=== PATIENT | male | born 1980 | race Caucasian/White ===

== ENCOUNTER 2017-01-24 15:00 | Inpatient (IN) | payer MEDICARE ==
[~2017-01-24] VITALS: Ht 172.7 cm; Wt 72.6 kg
--- NOTE | ~2017-01-24 | PN ---
Unit #: [id number] #: [id number] Patient: KODAK RAMIREZ [id number] [facility] [address] [place] [address] [id number] I MR#: [id number] NAME: KODAK RAMIREZ ROOM: 86 Age: 36 Sex: M Admission Date: 01/24/2017 : 1980 Attending Physician: Nic Carnes M.D. Admitting Physician: Nic Carnes M.D. Primary Care Physician: Primary Care Physician Johanny BOYKIN PROGRESS NOTES DATE January 27, 2017 DISCUSSION Mr. Ramirez is a 36-year-old white male, who was seen today and chart was reviewed and the case was discussed with the staff. He has been anxious, withdrawn, and rather seclusive to himself. Meanwhile, he has been cooperative with the treatment recommendations and he has been taking the medications and tolerating them fairly well with no reported side effects. MENTAL STATUS EXAMINATION Young white male, who was casually dressed with fair personal hygiene and appears to be in no acute distress or discomfort. He was awake and alert with intact orientation. His mood is anxious with a congruent affect. He denies any suicidal or homicidal ideations. His insight and judgment remain slightly impaired. TREATMENT PLAN 1. We will continue him on his current medications and treatment protocol, and will monitor his response to the medications, and make further adjustments as needed. 2. We will continue to followup. Dictated by... Elle Engle/sumit TD: 01/28/2017 09:17 JOB #: [id number] [facility] PROGRESS NOTES Page 1 of 1 X Nic Carnes MD PROGRESS NOTE
--- NOTE | ~2017-01-24 | PA ---
Unit #: [id number] #: [id number] Patient: KODAK RAMIREZ [id number] [facility] [address] [place] [address] [id number] MR#: [id number] NAME: KODAK RAMIREZ ROOM: P186 Age: 36 Sex: M Admission Date: 01/24/2017 : 1980 Date of Assessment: Attending Physician: Nic Carnes M.D. Admitting Physician: Nic Carnes M.D. Primary Care Physician: Primary Care Physician No PSYCHIATRIC ASSESSMENT DATE OF SERVICE 01/24/2017 IDENTIFYING DATA Mr. Ramirez is a 36-year-old, , white male, who is a resident of [place], [place] and is very well known to us from previous multiple encounters and usually comes to [facility] in [facility] and has had repeat hospitalizations particularly of late with poor outcomes and refusing to follow up on any treatment recommendation, and now decided to bring himself onto the [facility] with a blood alcohol level of 0.035. CHIEF COMPLAINT "I'm feeling suicidal." HISTORY OF PRESENT ILLNESS A 36-year-old white male with a history of mood disorder and substance abuse who called the police stating that he was feeling suicidal and suffers from depression and was taken to the hospital where his drug screen was seen to be positive for opioids, methamphetamine and benzodiazepines, and had a blood alcohol level of 0.035 and was seen to be flat and depressed and seclusive to himself and describes feelings of hopelessness and helplessness, and stated that he is tired of his 16-year-old daughter seeing him that way and that he has been drinking a liter of alcohol daily with history of withdrawal seizures and endorses recent use of methamphetamine, benzodiazepines, opioids, and alcohol and that he has had increasing depression, feelings of hopelessness and helplessness, and suicidal ideations. He also reports previous suicide attempts resulting in medical interventions in the intensive care unit with multiple inpatient hospitalizations, but has not been able to follow up with outpatient treatment and as such, has been seen to have poor prognosis; however, he was seen to be a significant danger to self and therefore recommendation for inpatient level of care for safety and stabilization was made. The patient was transferred to us. SUBSTANCE ABUSE HISTORY The patient reports history of alcohol, opioids, and methamphetamine abuse and dependence. PAST PSYCHIATRIC HISTORY The patient has had a history of multiple inpatient psychiatric hospitalizations mostly at [facility] in addition to being at [facility] and at the [facility], and has been diagnosed and Unit #: [id number] #: [id number] Patient: KODAK RAMIREZ treated for mood disorder. He was supposed to be on psychotropic medications, but has been noncompliant with medication as such, has been decompensating. PAST MEDICAL HISTORY Hepatitis C, Crohn disease, hypothyroidism. ALLERGIES Penicillin. PERSONAL AND SOCIAL HISTORY A 36-year-old white male, who reports that he is single, unemployed, and lives with a cousin and has poor social support system. MENTAL STATUS EXAMINATION Young white male, who was casually dressed with fair personal hygiene, appears to be in no acute distress or discomfort. He was awake and alert on interaction with intact orientation to time, place, and person. His mood was anxious and depressed with a congruent affect. His speech was slow and restricted in content. His thought processes were disorganized with some looseness of associations and flight of ideas. His insight and judgment remain significantly impaired. DIAGNOSTIC IMPRESSION Psychiatric: Alcohol dependence, moderate and acute withdrawals; benzodiazepine dependence, moderate and acute withdrawals; opioid dependence, moderate and acute withdrawals; methamphetamine dependence, moderate; alcohol-induced mood disorder. Medical: None. Stressors: Moderate psychosocial stressors. TREATMENT PLAN 1. The patient has presented with a history of substance abuse and mood disorder, and has been decompensating and will need inpatient hospitalization for safety and stabilization. We will start him back on his home medications. We will adjust the medications and monitor response. 2. Supportive therapy was provided to the patient. 3. Safe, structured, and nourishing environment will be provided. ESTIMATED LENGTH OF STAY 5 to 7 days. ABILITY TO HELP SELF Limited. WILLINGNESS TO HELP SELF The patient appears to be willing to help self. STRENGTHS 1. Communicative. 2. Cooperative. PROBLEMS 1. Chronic dysphoric symptoms. 2. Chronic chemical dependency. 3. Poor social support system. Unit #: [id number] #: [id number] Patient: KODAK RAMIREZ DISCHARGE CRITERIA This will be contingent upon the patient's ability to show resolution of his depression and anxiety and ability to go through detox without having any significant withdrawal symptoms as well as ability to stay safe to himself, particularly after discharge from the hospital. Dictated by... Elle Engle/contreras TD: 01/25/2017 06:57 JOB #: [id number] PSYCHIATRIC ASSESSMENT Page 1 of 1 X Nic Carnes MD PSYCHIATRIC ASSESSMENT
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
--- NOTE | ~2017-01-24 | PN ---
Unit #: [id number] #: [id number] Patient: KODAK RAMIREZ [id number] [facility] [address] [place] [address] [id number] MR#: [id number] NAME: KODAK RAMIREZ ROOM: 86 Age: 36 Sex: M Admission Date: 01/24/2017 : 1980 Attending Physician: Nic Carnes M.D. Admitting Physician: Nic Carnes M.D. Primary Care Physician: Primary Care Physician Johanny BOYKIN PROGRESS NOTES DATE 01/26/2017 DISCUSSION Mr. Ramirez is a 36-year-old white male with mood disorder and substance abuse who was seen today and chart was reviewed and case was discussed with the staff. He remains anxious, withdrawn, depressed and rather seclusive to himself. Meanwhile, he has been taking medications and tolerating them fairly well with no reported side effects. MENTAL STATUS EXAMINATION Young white male who was casually dressed with fair personal hygiene and appears to be in no acute distress or discomfort. He was awake and alert with intact orientation. His mood was anxious with congruent affect. He denies any suicidal or homicidal ideation. His insight and judgement remains slightly impaired. TREATMENT PLAN 1. Will continue his current treatment protocol. Will monitor his response to the medications and make further adjustments as needed. 2. Will continue to follow up. Dictated by... Elle Engle/alyssa TD: 01/26/2017 21:20 JOB #: [id number] Unit #: [id number] #: [id number] Patient: KODAK RAMIREZ PROGRESS NOTES Page 1 of 1 X Nic Carnes MD PROGRESS NOTE
--- NOTE | ~2017-01-24 | PN ---
Unit #: [id number] #: [id number] Patient: KODAK RAMIREZ [id number] [facility] [address] [place] [address] [id number] MR#: [id number] NAME: KODAK RAMIREZ ROOM: [facility] Age: 36 Sex: M Admission Date: 01/24/2017 : 1980 Attending Physician: Nic Carnes M.D. Admitting Physician: Nic Carnes M.D. Primary Care Physician: Primary Care Physician Johanny CINTRON NOTES DATE OF SERVICE 01/25/2017 DISCUSSION Mr. Ramirez is a 36-year-old white male who was seen today. Chart was reviewed and case was discussed with the staff. He has been anxious, withdrawn, and rather seclusive to himself. Meanwhile, he has been cooperative with the treatment recommendations and has been taking the medications and tolerating them fairly well with no reported side effects. MENTAL STATUS EXAMINATION Young white male who is casually dressed with fair personal hygiene, appears to be in no acute distress or discomfort. He was awake and alert on interaction with intact orientation. His mood is anxious with congruent affect. Speech is slow and goal-directed. He denies any suicidal or homicidal ideations and also denies any auditory or visual hallucinations. His insight and judgment remain slightly impaired. TREATMENT PLAN 1. We will continue him on his current medications and treatment protocol. We will monitor his response to the medications and make further adjustments as needed. 2. We will continue to follow up. Dictated by... Nic Carnes M.D. IAA/bzg TD: 01/25/2017 10:27 JOB #: [id number] Unit #: [id number] #: [id number] Patient: KODAK RAMIREZ PROGRESS NOTES Page 1 of 1 X Nic Carnes MD PROGRESS NOTE
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
--- NOTE | ~2017-01-24 | PN ---
Unit #: [id number] #: [id number] Patient: KODAK RAMIREZ [id number] [facility] [address] [place] [address] [id number] MR#: [id number] NAME: KODAK RAMIREZ ROOM: [facility] Age: 36 Sex: M Admission Date: 01/24/2017 : 1980 Attending Physician: Nic Carnes M.D. Admitting Physician: Nic Carnes M.D. Primary Care Physician: Primary Care Physician Johanny CINTRON NOTES DATE January 28, 2017 DISCUSSION Mr. Ramirez is a 36-year-old white male, who was seen today and chart was reviewed and the case was discussed with the staff. He has been anxious, withdrawn, and seclusive to himself. Meanwhile, he has been cooperative with the treatment recommendations and he has been taking the medications and tolerating them fairly well with no reported side effects. MENTAL STATUS EXAMINATION Young white male, who was casually dressed with fair personal hygiene and appears to be in no acute distress or discomfort. He was awake and alert on interaction with intact orientation. His mood is anxious and depressed with a congruent affect. His speech is slow and goal-directed. He denies any suicidal or homicidal ideations. His insight and judgment remain slightly impaired. TREATMENT PLAN 1. We will continue him on his current medications and treatment protocol, and will monitor his response to the medications, and make further adjustments as needed. 2. We will continue to followup. Dictated by... Elle Engle/sumit TD: 01/29/2017 05:49 JOB #: [id number] Unit #: [id number] #: [id number] Patient: KODAK RAMIREZ PROGRESS NOTES Page 1 of 1 X Nic Carnes MD PROGRESS NOTE
--- NOTE | ~2017-01-24 | DS ---
Unit #: [id number] #: [id number] Patient: [facility]AK RAMIREZ [id number] [facility] [address] [place] [address] [id number] MR#: [id number] NAME: KODAK RAMIREZ ROOM: P186 Age: 36 Sex: M Admission Date: 01/24/2017 : 1980 Discharge Date: 01/29/2017 Attending Physician: Nic Carnes M.D. DISCHARGE SUMMARY IDENTIFYING DATA Mr. Ramirez is a 36-year-old , disabled, white male, who is a resident of [place], [place], who is very well known to me from previous multiple encounters and usually comes to [facility] in [facility] and has had repeat hospitalizations particularly of late with poor outcome and refusing to follow up with any treatment recommendations and now decided to bring himself onto the [place] side with a blood alcohol level of 0.035, stating "I'm feeling suicidal." DISCHARGE DIAGNOSES Psychiatric: Alcohol dependence, moderate and acute withdrawals; benzodiazepine dependence, moderate and acute withdrawals; opioid dependence, moderate and acute withdrawals; methamphetamine dependence, moderate; alcohol-induced mood disorder. Medical: None. Stressors: Moderate psychosocial stressors. HISTORY OF PRESENT ILLNESS Please see initial psychiatric evaluation for details. PAST PSYCHIATRIC HISTORY Please see initial psychiatric evaluation for details. PAST MEDICAL HISTORY Please see initial psychiatric evaluation for details. HOSPITAL COURSE The [facility] and was oriented to the hospital environment. Routine p.r.n. medications were initiated, and he was started on the detox protocol and was closely monitored. He was taking the medications regularly and was tolerating them fairly well and was able to show a decent and therapeutic response with improvement in his detox symptoms and was denying any suicidal ideations, intent, or plan and was willing to continue treatment on an outpatient basis and as such, it was decided that he will be discharged home and will continue treatment on an outpatient basis. DISCHARGE CONDITION Stable. PROGNOSIS Fair. Unit #: [id number] #: [id number] Patient: KODAK RAMIREZ Dictated by... Nic Carnes M.D. IAA/modl TD: 01/29/2017 22:55 JOB #: [id number] DISCHARGE SUMMARY Page 1 of 1 X Nic Carnes MD DISCHARGE SUMMARY
[2017-01-25 09:44] LABS: BASOPHIL# 0.1 X10e3 (0-0.3); BASOPHIL% 0.7 % (0-2.5); EOSINOPHIL# 0.3 X10e3 (0-0.7); EOSINOPHIL% 4.4 % (0.0-7.0); HEMATOCRIT 40.1 % (38.0-50.0); HEMOGLOBIN 13.8 gm/dL (13.0-16.0); LYMPHOCYTE# 2.1 X10e3 (1.0-3.5); LYMPHOCYTE% 28.1 % (17.0-45.0); MEAN CELL VOLUME 85.3 FL (83-96); MEAN CORPUSCULAR HEMOGLOBIN 29.5 PG (28-34); MEAN CORPUSCULAR HGB CONC 34.5 g/dL (30-36); MEAN PLATELET VOLUME 8.8 FL (6.5-11.5); MONOCYTE# 0.7 X10e3 (0-1.0); MONOCYTE% 10.1 % (3.0-12.0); NEUTROPHIL# 4.2 X10e3 (1.5-7.1); NEUTROPHIL% 56.7 % (40-75); PLATELET COUNT 207 X10e3 (140-420); RED CELL DISTRIBUTION WIDTH 14.5 % (11.0-15.5); WHITE BLOOD COUNT 7.4 X10e3 (4.0-10.5)
[2017-01-25 09:47] LABS: DIFF IND NO
[2017-01-25 09:53] LABS: ALBUMIN SERUM 3.8 g/dL (3.5-5.0); BILIRUBIN,TOTAL 0.8 mg/dL (0.2-2.0); BUN/CREATININE RATIO 17.5; CALCIUM SERUM 9.3 mg/dL (8.4-10.2); CREATININE SERUM 0.8 mg/dL (0.6-1.4); GLOM FILT RATE Estimated 113.4 mL/min (>60); PROTEIN TOTAL SERUM 6.7 g/dL (6.0-8.3)
[2017-01-28 09:42] LABS: URINE APPEARANCE CLEAR; URINE BILIRUBIN NEG (NEG); URINE BLOOD NEG (NEG); URINE COLOR YELLOW; URINE GLUCOSE NEG (NEG); URINE KETONE NEG (NEG); URINE LEUKOCYTE ESTERASE NEG (NEG); URINE NITRATE NEG (NEG); URINE PH 6.5 (5-8); URINE PROTEIN NEG (NEG); URINE SPECIFIC GRAVITY 1.004 (1.003-1.035); URINE UROBILINOGEN 0.2 MG/DL (NEG)
[2017-01-28 10:16] LABS: AMPHETAMINE NEG (NEG); BARBITURATES NEG (NEG); BENZODIAZEPINES POS (NEG); COCAINE NEG (NEG); MARIJUANA NEG (NEG); OPIATES NEG (NEG); TRICYCLIC ANTIDEPRESSANTS NEG (NEG); U METHADONE NEG (NEG)
== END 2017-01-29 10:00 | DRG 897 ==
LOC: P1E 15:35
PROVIDERS: Psychiatry & Neurology Psychiatry
PROC: HZ2ZZZZ Detoxification Services for Substance Abuse Treatment (ICD-10-PCS; principal; 2017-01-24)
DX: F10.230 Alcohol dependence with withdrawal, uncomplicated (principal); F11.23 Opioid dependence with withdrawal; R45.851 Suicidal ideations; F15.20 Other stimulant dependence, uncomplicated; F10.24 Alcohol dependence with alcohol-induced mood disorder; K50.90 Crohn's disease, unspecified, without complications; F13.230 Sedative, hypnotic or anxiolytic dependence with withdrawal, uncomplicated; Z88.0 Allergy status to penicillin; E05.90 Thyrotoxicosis, unspecified without thyrotoxic crisis or storm
CPT/HCPCS: 80053; 80307; 81003; 85025; 86592; J2550